=== PATIENT | female | born 1985 | race Caucasian/White ===

== ENCOUNTER 2020-04-27 11:24 | Outpatient (REF) | payer OTHER, SELFPAY ==
[2020-04-27 22:42] LABS: Anion Gap 7.6 mmol/L (3-11); BUN 5 mg/dL (7-18); CO2 28.4 mmol/L (21.0-32.0); CREATININE 0.97 mg/dL (0.55-1.02); Calcium 9.9 mg/dL (8.5-10.1); Chloride 103 mmol/L (98-107); Glucose 87 mg/dL (74-106); Potassium 4.4 mmol/L (3.5-5.1); Sodium 139 mmol/L (136-145)
== END 2020-04-27 11:44 ==
LOC: NCHCN 11:24
PROVIDERS: Visit Provider Nurse Practitioner Community Health
DX: Z51.81 Encounter for therapeutic drug level monitoring (principal)
CPT/HCPCS: 80048

== ENCOUNTER 2022-02-27 18:29 | Outpatient (REF) | payer OTHER, SELFPAY ==
[2022-02-27 15:54] LABS: Abs Immature Grans 0.01 10^3/uL (0.0-0.06); Absolute Basophil Count 0.04 10^3/uL (0.0-0.2); Absolute Eosinophil Count 0.08 10^3/uL (0.0-0.7); Absolute Lymphocyte Count 2.62 10^3/uL (1.2-3.4); Absolute Monocyte Count 0.54 10^3/uL (0.1-0.8); Absolute Neutrophil Count 3.44 10^3/uL (1.2-6.7); Basophils % 0.6; Eosinophils % 1.2; HCT 41.7 % (36.0-46.0); HGB 14.1 g/dL (11.2-15.7); Immature Grans % 0.1; Lymphocytes % 38.9; MCH 30.1 pg (27.0-33.0); MCHC 33.8 % (32.0-36.0); MCV 89 fL (80-95); MPV 11.3 fL (8.0-11.0); Neutrophils % 51.2; Platelet Count 291 10^3/uL (130-400); RBC 4.69 10^6/uL (3.93-5.22); RDW 12.8 % (11.7-14.6); RDW-SD 41.1 fL; WBC 6.73 10^3/uL (4.4-10.8)
[2022-02-27 16:17] LABS: ALT 30 U/L (14-59); AST 23 U/L (15-37); Albumin 3.7 g/dL (3.4-5.0); Alkaline Phosphatase 66 U/L (46-116); Anion Gap 9.6 mmol/L (3-11); BUN 11 mg/dL (7-18); Bilirubin, Total 0.1 mg/dL (0.2-1.0); CO2 28.4 mmol/L (21.0-32.0); CREATININE 0.9 mg/dL (0.55-1.02); Calcium 8.8 mg/dL (8.5-10.1); Calculated LDL 162 mg/dL (<100); Chloride 103 mmol/L (98-107); Cholesterol 261 mg/dL (<200); Glucose 94 mg/dL (74-106); HDL Cholesterol 39 mg/dL (40-60); Potassium 3.6 mmol/L (3.5-5.1); Sodium 141 mmol/L (136-145); TSH (W/Ref FT4) 1.77 uIU/mL (0.36-3.74); Total Protein 7.6 g/dL (6.4-8.2); Triglyceride 303 mg/dL (<150)
[2022-02-27 16:42] LABS: Hemoglobin A1C 5.5 % (<5.7)
== END 2022-02-27 18:30 | disposition home or self-care (01) ==
LOC: NCHCN 18:29
PROVIDERS: PCP Nurse Practitioner Family; Visit Provider Nurse Practitioner Family
DX: Z00.00 Encounter for general adult medical examination without abnormal findings (principal); R53.83 Other fatigue; Z13.1 Encounter for screening for diabetes mellitus; Z13.220 Encounter for screening for lipoid disorders
CPT/HCPCS: 80053; 80061; 83036; 84443; 85025

== ENCOUNTER 2022-09-03 14:17 | Outpatient (REF) | payer OTHER, SELFPAY ==
--- OUTSIDE RECORDS SUMMARY | 2022-09-03 14:20 | XMS_ITS ---
Author Name Esther Hall Organization Unknown Care Team Providers Care Die Reamer Name Role Phone Esther Hall Unavailable Unavailable PROBLEMS Type Condition ICD9-CM Code [id number] Code Onset Dates Condition Status SNOMED Code Problem Dysmenorrhea, unspecified N94.6 Active 323416495 Problem Deep dyspareunia N94.12 Active 3947241 03 Problem Irregular menstruation, unspecified N92.6 Active 68395150 ALLERGIES Substance Reaction Event Type Date Status Imitrex high heart rate Drug Allergy Mar, Activ e ENCOUNTERS Encounter Location Date Diagnosis [facility] [place] [address] Mar, [facility] [address] [facility] [place] [address] 10 Mar, 2021 Irregular menstruation, unspecified N92.6 ; Pelvic and perineal pain R10.2 ; Dysmenorrhea, unspecified N94.6 and Deep dyspareunia N94.12 IMMUNIZATIONS No Known Immunizations SOCIAL HISTORY Qualifiers Date Current Smoker REASON FOR REFERRAL FUNCTIONAL STATUS PLAN OF CARE VITAL SIGNS Height 61.5 in 2021-03-24 Weight 150 lbs 2021-03-24 BMI 27.88 kg/m2 2021-03-24 Blood pressure systolic 112 Blood pressure diastolic 80 2021-03 MEDICATIONS Medication Instructions Dosage Frequency Start Date End Date Duration Status Prometrium 100 MG Orally Daily for 21 days, skip during menses and repeat 21 days after menses as directed Mar, 84 days Active HYDROcodone-Aceta minophen Active valACYclovir HCl Active Amitriptyline HCl Active PROCEDURES Procedure Date Ordered Result Body Site Venipuncture, routine Mar 24, 2021 TVUS (non-Ob) Mar 24, 2021 Specimen Handling Mar 24, 2021 RESULTS Name Result Date Reference Range PROLACTIN 2021-03-24 PROLACTIN 8.6 See Table THYROID CASCADE 2021-03-24 TSH 1.81 0.47-4.68 REASON FOR VISIT Insurance Providers Health Insurance Type Health Plan Insurance Address Health Plan Insurance Phone Health Plan Insurance Name Health Plan Coverage Dates Member ID Patient Relationship to Subscriber Patient Address Patient Phone Patient Name Patient Date of Subscriber ID Subscriber Name Subscriber Date of Group No [employer] [address] [place] [address] [employer] self Kristin Kramer [id number] MEDICAL (GENERAL) HISTORY Type Description Date Medical History Medical History Candidiasis Medical History BV Medical History dyspareunia Medical History urinary sx Medical History sacroiliac joint dysfuncton Medical History chronic pain syndrome Medical History pes planus Medical History dysfuntional uterine bleeding Medical History chronic migraine without aura Medical History mixed anxiety and depressive dis order Medical History pulmonary nodule, right lower lo be Medical History cubital tunnel syndrome Medical History carpal tunnel syndrom, bilateral upper limbs Medical History Gastroesophogeal reflux, no esop hagitis Medical History Shoulder pain Medical History hypertriglyeridemia Medical History moderate cigarette smoker Medical History dyslipidemia Medical History secondary [place] Medical History borderline elevated blood pressu re Medical History skin problems Medical History fibroids Medical History ovarian cysts and tumor Medical History pelvic pain Medical History PMS Medical History Last pap: 11/26/2018 NIL HPV Neg Surgical History 2 C/S Surgical History BTL 2011 Surgical History Gallbladder removal 2015
[2022-09-04 15:47] LABS: HSV 1 DNA Result Positive (Negative); HSV 2 DNA Result Negative (Negative); Varicella Zoster DNA Result Negative ((See Note))
== END 2022-09-03 14:18 | disposition home or self-care (01) ==
LOC: NCHCN 14:17
PROVIDERS: PCP Nurse Practitioner Family; Visit Provider Nurse Practitioner Family
DX: L98.9 Disorder of the skin and subcutaneous tissue, unspecified (principal)
CPT/HCPCS: 87529; 87798

== ENCOUNTER 2023-08-21 16:39 | Outpatient (REF) | payer MEDICAID, SELFPAY ==
[2023-08-21 21:34] LABS: Anion Gap 8.6 mmol/L (3-11); BUN 4 mg/dL (7-18); CO2 28.4 mmol/L (21.0-32.0); CREATININE 0.8 mg/dL (0.55-1.02); Calcium 9.1 mg/dL (8.5-10.1); Calculated LDL 153 mg/dL (<100); Chloride 106 mmol/L (98-107); Cholesterol 226 mg/dL (<200); Estimated GFR 97.26 (mL/min/1.73m2); Glucose 114 mg/dL (74-106); HDL Cholesterol 49 mg/dL (40-60); Potassium 3.7 mmol/L (3.5-5.1); Sodium 143 mmol/L (136-145); Triglyceride 120 mg/dL (<150)
[2023-08-21 21:57] LABS: Hemoglobin A1C 5.1 % (<5.7)
== END 2023-08-21 16:40 | disposition home or self-care (01) ==
LOC: NCHCN 16:39
PROVIDERS: PCP Nurse Practitioner Family; Visit Provider Nurse Practitioner Family
DX: E66.3 Overweight (principal)
CPT/HCPCS: 80048; 80061; 83036

== ENCOUNTER 2023-10-28 14:21 | Outpatient (REF) | payer MEDICAID, SELFPAY ==
[2023-10-28 16:44] LABS: HCT 28.3 % (36.0-46.0); HGB 9.4 g/dL (11.2-15.7); MCH 31.6 pg (27.0-33.0); MCHC 33.2 % (32.0-36.0); MCV 95 fL (80-95); MPV 11.1 fL (8.0-11.0); Platelet Count 282 10^3/uL (130-400); RBC 2.97 10^6/uL (3.93-5.22); RDW 13.9 % (11.7-14.6); RDW-SD 48.5 fL; WBC 8.04 10^3/uL (4.4-10.8)
[2023-10-28 17:15] LABS: HCG Quant, Pregnancy 152 mIU/mL (1-3)
== END 2023-10-28 14:22 | disposition home or self-care (01) ==
LOC: NCHCN 14:21
PROVIDERS: PCP Nurse Practitioner Family; Visit Provider Nurse Practitioner Family
DX: O00.101 Right tubal pregnancy without intrauterine pregnancy (principal)
CPT/HCPCS: 85027; 84702